=== PATIENT | male | born 1995 | race Caucasian/White ===

== ENCOUNTER 2016-12-15 20:27 | Emergency (ER) | payer BC, OTHER ==
[~2016-12-15] VITALS: Ht 182.9 cm; Wt 79.2 kg
[2016-12-15 21:47] VITALS: BP 121/79
--- NOTE | 2016-12-15 23:22 | REP ---
Clinical: Trauma . Technique: Internal rotation, external rotation, and Y view right shoulder . Findings: No acute fracture or dislocation. The acromioclavicular and glenohumeral joints are intact. No periarticular calcifications or degenerative changes are appreciated. Sub acromial space is normal. Surrounding soft tissues are unremarkable. Impression: Normal right shoulder radiographs. Signed by Warren Hannon MD 12/15/2016 11:13 P
== END 2016-12-15 21:50 | disposition home or self-care (01) ==
LOC: M ED 20:27
DX: M25.511 Pain in right shoulder (principal)

== ENCOUNTER 2018-01-16 00:30 | Emergency (ER) | payer BC, OTHER ==
[2018-01-16] MEDS: LIDOCAINE 2% MDV 20 ML VIAL SC (00:45)
[2018-01-16] MEDS: ADACEL/BOOSTRIX VACCINE (DIPHTH/PERTUSS/ACELL/TETANUS)0.5ML SYR (90715) IM (01:04)
[2018-01-16] MEDS: ceFAZolin 1GM INJ (J0690 PER 500MG) IM (01:05)
[2018-01-16] MEDS ORDERED: NEOSPORIN OINT 0.9 GM PKT (FLOOR STOCK) As Ordered (01:58)
[2018-01-16] MEDS: NORCO 5/325MG TABLET (BULK FOR ED) PO (02:06)
== END 2018-01-16 02:08 | disposition home or self-care (01) ==
LOC: M ED 00:30
DX: S61.215A Laceration without foreign body of left ring finger without damage to nail, initial encounter (principal); S62.635B Displaced fracture of distal phalanx of left ring finger, initial encounter for open fracture; W23.0XXA Caught, crushed, jammed, or pinched between moving objects, initial encounter; Y92.009 Unspecified place in unspecified non-institutional (private) residence as the place of occurrence of the external cause
CPT/HCPCS: J0690

== ENCOUNTER 2022-09-10 14:31 | Emergency (ER) | payer BC, OTHER ==
[~2022-09-10] VITALS: Ht 182.9 cm; Wt 92.0 kg
[~2022-09-10 14:31] MED LIST: HYDR-3715 PO; KEFL500C17 PO
[2022-09-10] MEDS ORDERED: PERCOCET 5MG/325MG TAB PO ONE (14:55)
[2022-09-10] MEDS ORDERED: BOOSTRIX VACCINE (TETANUS/DIPHTH/ACEL. PERTUSSIS) 0.5ML SYR IM.IMMUN ONE (14:55)
[2022-09-10] MEDS ORDERED: BACITRACIN OINTMENT 30GM TUBE TOP ONE (15:00)
[2022-09-10] MEDS ORDERED: FLUORESCEIN OPHTH 1MG STRIP OD ONE (15:10)
[2022-09-10] MEDS ORDERED: BACI500O8 TOP (16:36)
[2022-09-10] MEDS ORDERED: PERC5TAB12 PO (16:58)
[2022-09-10 17:03] VITALS: BP 156/88
== END 2022-09-10 17:04 | disposition home or self-care (01) ==
LOC: M ED 14:31
DX: T31.0 Burns involving less than 10% of body surface (principal); X08.8XXA Exposure to other specified smoke, fire and flames, initial encounter; Y92.89 Other specified places as the place of occurrence of the external cause; Y93.89 Activity, other specified; Y99.8 Other external cause status

== ENCOUNTER → 2025-02-24 | Outpatient (REF) | payer MEDICAID ==
[~2025-02-24] MED LIST changes: +BACI500O8 TOP; +PERC5TAB12 PO
[2025-02-24 12:33] LABS: ESTIMATED AVERAGE GLUCOSE 108.0 MG/DL (60-110)
[2025-02-24 12:44] LABS: CHOLESTEROL LEVEL 174.0 MG/DL (<200); CHOLESTEROL RISK RATIO 3.58 (<5); LDL CHOLESTEROL 115.1 MG/DL (<100); NON-HDL-C 125.5 MG/DL; TRIGLYCERIDES LEVEL 52.0 MG/DL (<150)
== END ==
LOC: M SFHCCLAY 08:27
PROVIDERS: ATTEND Physician Assistant
DX: Z00.00 Encounter for general adult medical examination without abnormal findings (principal); L01.00 Impetigo, unspecified